=== PATIENT | male | born 1985 | race Caucasian/White ===

== ENCOUNTER 2017-10-22 22:36 | Emergency (ER) | payer MEDICAID ==
[~2017-10-22] VITALS: Ht 177.8 cm; Wt 127.9 kg
[2017-10-22 22:38] VITALS: Ht 177.8 cm; Wt 127.9 kg
[2017-10-22 23:20] LABS: BASOPHIL % 0.4 % (0-2); PLATELET COUNT 251 x10^3mcL (130-400); RED CELL DISTRIBUTION WIDTH 13.5 % (11.5-14.5)
[2017-10-22 23:38] LABS: CHLORIDE SERUM 104 mmol/L (98-107); CREATININE SERUM 0.9 mg/dL (0.7-1.3); GFR1 > 60 mL/min; GLUCOSE SERUM 129 mg/dL (74-106); POTASSIUM SERUM 4.2 mmol/L (3.5-5.1); SODIUM SERUM 142 mmol/L (136-145)
[2017-10-22 23:50] LABS: ALBUMIN 3.8 g/dL (3.4-5.0); ALKALINE PHOSPHATASE 90 U/L (46-116); ALT/SGPT 45 U/L (16-63); AST/SGOT 19 U/L (15-37); BILIRUBIN TOTAL 0.2 mg/dL (0.20-1.00); CHOLESTEROL 141 mg/dL (<200); LIPASE 140 IU/L (73-393); TOTAL PROTEIN, SERUM 7.4 g/dL (6.4-8.2); TRIGLYCERIDES 76 mg/dL (<150)
[2017-10-22 23:52] LABS: CHOLESTEROL/HDL RATIO 4.4; HDL CHOLESTEROL 32 mg/dL (40-60)
[2017-10-22 23:55] LABS: FREE T4 0.88 ng/dL (0.76-1.46); FREE THYROXINE INDEX 2.1 ug/dL (1.4-4.5); T4(THYROXINE) 6.7 ug/dL (4.7-13.3)
[2017-10-23 00:40] LABS: T3 TOTAL 1.41 ng/mL
[2017-10-23 00:57] VITALS: BP 143/98
[2017-10-23 01:34] LABS: AMPHETAMINE QUAL UR NONE DETECTED (See below)
== END 2017-10-23 00:59 | disposition home or self-care (01) ==
LOC: ED 22:36
PROVIDERS: Specialist
DX: R07.89 Other chest pain (principal)
CPT/HCPCS: 36415; 83880; 84439